=== PATIENT | male | born 1975 | race Caucasian/White ===

== ENCOUNTER 2020-12-03 10:58 | Day surgery (SDC) | payer BC ==
[2020-11-29 14:34] LABS: Absolute Lymphocytes (CBC) 2.1 K/uL (0.7-4.9); Basophils % 0.8 % (0-1.3); Hematocrit 46.5 % (39.6-49.0); Lymphocytes % 26.2 % (15.3-44.8); MPV 7.9 fL (7.6-11.3); RBC Red Blood Cell Count 5.38 M/uL (4.33-5.43)
[2020-11-29 14:39] LABS: Protime INR 1.02
[2020-11-29 14:42] LABS: BUN Blood Urea Nitrogen 13 mg/dL (7-18); Bicarbonate 31 mmol/L (21-32); Glucose Level 89 mg/dL (74-106); Potassium 3.8 mmol/L (3.5-5.1); Sodium Level 139 mmol/L (136-145)
[2020-11-29 14:44] LABS: Urine Appearance CLEAR (Clear); Urine Bilirubin NEGATIVE (Negative); Urine Blood 3+ (Negative); Urine Color YELLOW (Yellow); Urine Glucose NEGATIVE (Negative); Urine Protein NEGATIVE (Negative); Urine Urobilinogen 0.2 mg/dL (0.2-1.0); Urine pH 5.5 (5.0-7.0)
[2020-11-29 14:47] LABS: Urine Microscopic Reflex ORDER UMIC
[2020-11-29 15:19] LABS: Urine Bacteria <20 /HPF (NONE SEEN)
[2020-12-03] MEDS ORDERED: Ringers Lactate 1,000 ML IV ONE (11:29)
[2020-12-03] MEDS ORDERED: CELECOXIB 100 MG CAPSULE ONE (11:46)
[2020-12-03] MEDS ORDERED: ACETAMINOPHEN 500 MG TAB ONE (11:46)
[2020-12-03] MEDS ORDERED: CLINDAMYCIN INJ 600 MG in NA CHLORIDE 0.9% 50 ML IV ONE (12:00)
[2020-12-03] MEDS ORDERED: Gentamicin Inj 160 MG in NA CHLORIDE 0.9% 100 ML IV ONE (12:00)
[2020-12-03] MEDS ORDERED: MIDAZOLAM HCL 2 MG/2 ML INJ ONE ×2 (12:20→12:27)
[2020-12-03] MEDS ORDERED: FENTANYL CITR 100 MCG/2 ML ONE (12:26)
[2020-12-03] MEDS ORDERED: propofoL 200 MG/20 ML VIAL IV ONE (12:26)
[2020-12-03] MEDS ORDERED: LIDOCAINE 1% MPF 5 ML VIAL ONE (12:27)
[2020-12-03] MEDS ORDERED: PHENAZOPYRIDINE 100MG TAB PO ONE ×2 (12:31→14:19)
[2020-12-03] MEDS ORDERED: KETOROLAC 30 MG/ML INJ ONE (13:01)
[2020-12-03] MEDS ORDERED: ONDANSETRON 4 MG/2 ML VIAL ONE (13:01)
--- NOTE | 2020-12-03 13:08 | RAD REPORT ---
EXAM DESCRIPTION: RAD - Urethrocystogrphy Retrograde - 12/03/2020 12:53 pm CLINICAL HISTORY: ICD N 20.0 FINDINGS: 6 fluoroscopic spot images obtained. Fluoroscopy time.1 minutes Right ureter was cannulated and contrast administered. Subsequently an ureteral stent was placed. Exa mination was performed by Dr Spencer
[2020-12-03 13:27] VITALS: TEMP 96.9
[2020-12-03 14:33] VITALS: BP 108/66; O2SAT 97
[2020-12-03] MEDS ORDERED: HYDROCODONE/APAP 5/325 MG TAB PO ONE (15:19)
--- NOTE | 2020-12-03 18:56 | OP ---
Surgeon: CARLOS ALVARADO Preoperative Diagnosis: Right ureterolithiasis. Postoperative Diagnoses: 1. Right ureterolithiasis. 2. Meatal stenosis. Principal Procedures: 1. Urethral dilatation using sounds. 2. Cystoscopy. 3. Right retrograde pyelogram. 4. Right ureteral stent placement. Date of Procedure: 12/03/20 Indication For Procedure: Mr. Rosales presented to Urology Clinic as a recurrent stone former with a 7 mm proximal ureteral calculus. He was counseled about his options to include an attempt at spontaneous passage given the size of the stone, that likelihood was about 30%. Because of pain and discomfort, he did not feel like he could tolerate the time-frame for spontaneous passage, so he elected placement of a stent which was planned for today. Procedure In Detail: The patient was consented in the preoperative holding area before being transferred to operative suite where general anesthesia was induced. He was given clindamycin and gentamicin IV antimicrobial prophylaxis and pneumo boots were provided for DVT prophylaxis. He was placed in the lithotomy position, padded and secured to the table appropriately. Hibiclens was used to prep his genitalia and he was draped in standard fashion. The case was begun attempting to place a 22-Colombian rigid cystoscope into the urethra, but was aborted due to meatal stenosis. As a result, urethral sounds were used to graduate it, dilate the meatus to 26-Colombian, the meatus as well as the fossa navicularis. Once this was done, I was then able to navigate the 22-Colombian cystoscope via the meatus into the urethra and into the bladder with ease. His bladder was decompressed of urine and the bladder was surveyed. There were no obvious mucosal lesions, foreign bodies or stones throughout. The ureteral orifices were orthotopic in location, and the right ureteral orifice was cannulated using the tip of a 5-Colombian ureteral access catheter. A retrograde pyelogram was then performed. Right retrograde pyelography: Using a 70:30 mixture of Omnipaque and saline, contrast was injected via the 5- Colombian ureteral access catheter and did propagate up a point of obstruction and filling defect in the mid distal ureter consistent with the likely radiolucent calculus. Of note, the patient is on allopurinol and perhaps the stone is urine acid in composition. The contrast did propagate beyond the obstruction and enter a mild-moderately dilated renal pelvis with some mild caliectasis. As a result, a Sensor wire was passed via the 5-Colombian ureteral access catheter and into the upper pole of the kidney with a coil observed fluoroscopically. Over the wire, a 6-Colombian by 26 cm stent was placed into his kidney with ease with a coil observed within the renal pelvis. An additional coil was formed within the bladder as observed cystoscopically and his bladder was decompressed of fluid and urine before removing the cystoscope and completing the case. Complications: None. Discharge Disposition: He should follow up in the Urology Clinic with nurse practitionerCapo to discuss and be planned for definitive ureteroscopic management of the right ureteral calculus and any nephrolithiasis present along with laser lithotripsy and stent exchange. [place]/STEVEN Voice ID: [id number] Report ID: [id number] MTDD
--- NOTE | 2020-12-04 16:02 | EKG ---
Test Date: 2020-12-03 Test Time: 10:15:58 Coremaker Supervisor: GRZEGORZ MEASUREMENT RESULTS: Intervals: Rate: 66 IN: 172 QRSD: 104 QT: 404 QTc: 423 Moody: P: 48 IN: 172 QRS: 61 T: 29 INTERPRETIVE STATEMENTS: Normal sinus rhythm Normal ECG No previous ECG available for comparison Electronically Signed On 12-04-20 16:00:04 CDT by Jose Wiggins
== END 2020-12-03 14:28 | disposition home or self-care (01) ==
LOC: OR 10:58
PROVIDERS: ATTEND Urology
PROC: 0T768DZ Dilation of Right Ureter with Intraluminal Device, Via Natural or Artificial Opening Endoscopic (ICD-10-PCS; 2020-12-03)
PROC: 0T7D8ZZ Dilation of Urethra, Via Natural or Artificial Opening Endoscopic (ICD-10-PCS; principal; 2020-12-03 12:00)
DX: N20.1 Calculus of ureter (principal); Z20.822 Contact with and (suspected) exposure to COVID-19
CPT/HCPCS: 93005; 87088; 85025; 87086; 80048; 36415; 85610; 85730; 74450; 51610; 53605; 52332; U0002; J2704; J1580; J2250 ×2; J3010; J7120; J2405; 81003; 81015